=== PATIENT | female | born 1965 | race Caucasian/White ===

== ENCOUNTER 2023-01-01 16:30 | Outpatient (CLI) | payer BC | END 2023-01-01 16:31 | disposition home or self-care (01) | LOC: BURRAD 16:30 | PROVIDERS: ATTEND Nurse Practitioner Family | DX: S99.912A Unspecified injury of left ankle, initial encounter (principal); S82.832A Other fracture of upper and lower end of left fibula, initial encounter for closed fracture; M19.072 Primary osteoarthritis, left ankle and foot ==